=== PATIENT | male | born 1995 | race Caucasian/White ===

== ENCOUNTER 2016-07-19 21:00 | Emergency (ER) ==
--- NOTE | 2016-07-19 23:10 | EDDOCDS ---
Nurse's Notes [facility] Name: Mauricio Perez Age: 21 yrs Sex: Male : 1995 Arrival Date: 07/19/2016 Time: 21:00 Bed [facility] Private MD: Other - Complete Info On Cds Diagnosis: Adjustment disorder with depressed mood Presentation: 07/19 21:07 Red Flag criteria, patient assessed and taken directly to a bed. ck1 21:07 Presenting complaint: Patient states: PER PT HE HAS HAD SOME "PERSONAL ISSUES" LATELY tm5 THAT HAVE INCREASED, WHEN ASKED PT IF HE IS SUICIDAL HE STATES "I'D RATHER NOT SAY" DENIES HOMICIDAL IDEATIONS, PT HAS FLAT AFFECT AT THIS TIME, PT ARRIVES WITH [facility] FROM [place]. Mental Health Triage Level: Level 1- Pt displays no suicidal or homicidal ideations and does not appear to be a danger to self or others. Adult Sepsis Screening: The patient does not have new or worsening altered mentation. Patient's respiratory rate is less than 22. Systolic blood pressure is greater than 100. Patient has a qSOFA score of 0- Negative Sepsis Screen. Mental Health Triage Level: Level 1- Pt displays no suicidal or homicidal ideations and does not appear to be a danger to self or others. Suicide/Homicide risk assessment- the patient denies having any suicidal and/or homicidal ideations and does not present with any other emotional, behavioral or mental health complaints. Status: The patient is an active duty financial services representative. Transition of care: patient was not received from another setting of care. 21:07 Acuity: CLAUDIO Level 3 tm5 21:07 Method Of Arrival: Walkin/Carried/Asstd tm5 Triage Assessment: 21:12 General: Appears in no apparent distress, Behavior is appropriate for age, cooperative. tm5 Pain: Denies pain. Pt Declines HIV testing. Neurological: Level of Consciousness is awake, alert, Oriented to person, place, time. Respiratory: Airway is patent Respiratory effort is even, unlabored, Respiratory pattern is regular, symmetrical. Derm: Skin is pink, warm & dry. normal. Historical: - Allergies: no known allergies; - Home Meds: 1. none - PMHx: none; - PSHx: none; - Social history: Smoking status: Patient states was never smoker of tobacco. No barriers to communication noted, The patient speaks fluent Spanish. - Family history: Not pertinent. - : The pt / caregiver states he / she is not on anticoagulants. Home medication list is obtained from the patient. - Exposure Risk Screening:: None identified. Screenin:13 Screening information is obtained from the patient. Fall risk: No risks identified. tm5 Assistance ADL's: requires no assistance with activities of daily living. Abuse/DV Screen: The patient / caregiver reports he/she is: not in a situation that causes fear, pain or injury. Nutritional screening: No deficits noted. Advance Directives: Currently, there is no health care proxy. There is no active DNR order. home support is adequate. Assessment: 21:19 General: Appears in no apparent distress, comfortable, Behavior is appropriate for age, slm cooperative. General: chain of command in room . Respiratory: Airway is patent Respiratory effort is even, unlabored. 21:52 General: Appears in no apparent distress, comfortable, Behavior is appropriate for age, slm cooperative. General: pt sitting on stretcher chain of command in room security observing . Neurological: Level of Consciousness is awake, alert, obeys commands. Respiratory: Airway is patent Respiratory effort is even, unlabored. 23:08 Reassessment: Patient appears in no apparent distress at this time. [facility] Mental Health Eval: 22:19 Mental health consult is initiated at 22:00. Status: The patient is an active ml4 duty financial services representative. [facility] Behavioral Health: The patient is not an established patient of [facility] Behavioral Health. Referral Information: Evaluation referral is generated by YASMIN(Sgt Cardenas) . The patient was referred for evaluation because pt became intoxicated and bellig[place] [employer]. He allegedly made some vague suicidal threats to 17 year old girlfriend.. Subjective: The patients chief complaint is pt states, "I just had too much to drink and the alcohol got the best of me." Pt reports having a difficult time coping with the loss of his best friend who killed himself(MVA) August,. Admits over the past few days he's been struggling with his and states, "I just miss him so much and I shouldn't of texted my girlfriend while I was drunk, I'm not suicidal. Admits feeling down due to not being able to prevent his friend from suicide and feels sense of guilt. Pt states, "I just still can't believe he killed himself and I should've known he was depressed." He reports being best friends since elementary school and states, "I miss that velazquez between two best friends." Other stressors include past trauma and events that have occurred. While pt was away at [employer](Jan, 2015) he found out his girlfriend was "sleeping" with his Stepfather, which resulted in his Step-father committing suicide(gunshot) on" [employer] Family Day." Sates his step-father's is not a specific trigger of his sadness, however adds to his distress. Pt does not seek tx with [facility] and feels he may benefit from therapy. Pt adamantly denies denies SI and HI, able to CFS. Admits his sadness was exacerbated by his alcohol consumption. . Delusions are denied. Patient's mood is appropriate. Hallucinations are denied. Mental Health history: no relevant mental health problems or treatments. Mental Health Admissions: None. Current Outpatient Mental Health Services: None. Current living environment is The patient currently lives in a [facility]. The patient is single. Patient presents to Emergency Department with the following symptoms within the past 2 weeks: alcohol abuse, anger, anxiety, depressed mood, feelings of helplessness/hopelessness, vague SI while intoxicated, but denies thoughts currently.. Substance abuse: Patient uses of liquor. Mental status exam: Patients appearance is appropriate, Patient's behavior is cooperative, Speech is mumbled. Affect is appropriate. Mood is anxious. Hallucinations are denied. Appetite is characterized by binges. Memory is good. Energy level is normal. Content of thought is normal. Thought process is intact. Cognitive level is oriented to person, place, time and situation Patient's insight is fair. Judgement is fair. Rapport with interviewer is good. Suicidal Ideation is denied. Homicidal ideation is denied. Disposition: Medically cleared for disposition by Cassidy SILVEIRA Psychiatric Consult is deferred per ED physician, JORDANA Hernadez . [facility] Admission Criteria: Not Applicable. [place] because the patient does not display any suicidal or homicidal ideations and does not pose a risk to self or others. DSM-V Differential Diagnosis: Adjustment Disorder (F43.2) unspecified (F43.20). Insurance Pre-Certification: Not Required. Narrative: Pt is able to be discharged to [facility]. He continues to deny SI and HI, able to CFS. Referrals for outpt services was given at bedside and directed to follow up with [facility] during walk-in hrs. [facility] reports pt will have 24 hr supervision until he is able to be seen at [facility]. Vital Signs: 21:02 BP 131 / 65; Pulse 81; Resp 18 S; Temp 97.7(O); Pulse Ox 96% on R/A; Weight 63.5 kg gr2 (R); Height 5 ft. 8 in. (172.72 cm) (R); Pain 2/10; 22:56 BP 128 / 73; Pulse 65; Resp 16; Temp 97.6; Pulse Ox 99% ; Pain 0/10; mas 21:02 Body Mass Index 21.29 (63.50 kg, 172.72 cm) gr2 Vitals: 21:02 Log In Time: July 19, 2016 at 21:02. RN notified that patient meets Red Flag gr2 criteria. ED Course: 21:01 Patient visited by Sy Santamaria. gr2 21:01 Patient moved to Waiting gr2 21:02 Other - Complete Info On Cds is Private Physician. gr2 21:04 Patient visited by Sy Santamaria. gr2 21:04 Patient moved to [facility] gr2 21:06 Patient moved to Waiting ck1 21:12 Triage Initiated tm5 21:14 Patient moved to [facility] tm5 21:16 Heather Olivares LPN is Primary Nurse. slm 21:19 The patient / caregiver is instructed regarding the plan of care and ED course. Patient slm has correct armband on for positive identification. Bed in low position. Call light in reach. Side rails up X 1. Security observing. 21:19 No IV's were initiated during this patient's visit. No procedures done that require slm assistance. 21:20 Patient visited by Heather Olivares LPN. slm 21:29 Pt greeted and oriented to ED. Patient advised of names of staff involved in care, [facility] location of call [place], wait times and NPO status. Accompanied by escort, Patient has correct armband on for positive identification. Placed in psych safe attire. Bed in low position. Call light in reach. Side rails up X 1. Security observing. Property removed, inventory done, secured in belongings bag- Placed in locker 1. Door closed. Noise minimized. Moved to private room. Verbal reassurance given. Warm blanket given. Pillow given. Psych Safety Check: Location: Psych Room. Visual Assessment: cooperative \\T\\ this time. 21:30 Patient visited by Joe Gonsales. mas 21:45 Patient visited by Joe Gonsales. mas 21:53 Patient visited by Heather Olivares LPN. slm 22:00 Patient visited by Joe Gonsales. mas 22:15 Patient visited by Joe Gonsales. mas 22:23 [facility] F[facility] le 22:24 Patient visited by Cassidy Rodriguez FNP. le 22:30 Patient visited by Joe Gonsales. mas 22:45 Patient visited by Joe Gonsales. mas 22:51 Herlinda El [facility] is Referral Physician. le 23:01 Patient visited by Joe Gonsales. mas 23:01 E Legal paperwork was scanned into [employer] and attached to record. cl 23:09 Patient visited by Heather Olivares LPN. slm Attachments: 23:01 E Legal paperwork cl Order Results: There are currently no results for this order. Outcome: 22:52 Discharge ordered by Provider. le 23:08 Discharge Assessment: Patient awake, alert and oriented x 3. No cognitive and/or slm functional deficits noted. Patient verbalized understanding of disposition instructions. patient administered narcotics - no. The following High Risk Discharge criteria are identified: None. Discharged to home ambulatory, with chain of command. Condition: good. Discharge instructions given to patient, Instructed on discharge instructions, follow up and referral plans. Demonstrated understanding of instructions, Pt was receptive of discharge instructions/ teaching. No special radiology studies were completed. 23:10 Patient left the ED. slm Signatures: Modesto Salgado, PSA PSA cl Elmira Black,RN RN ck1 Dolly Ovalle, PSA PSA ml4 Cassiyd Rodriguez FNP ROUTE PROCESS ADMINISTRATOR le Joe Gonsales [place] gr2 Heather Olivares,LOOP PULLER LOOP PULLER slm Alana Nunez,RN RN tm5 MTDD
--- NOTE | 2016-07-19 23:10 | EDDOCDS ---
Physician Documentation [facility] Name: Mauricio Perez Age: 21 yrs Sex: Male : 1995 Arrival Date: 07/19/2016 Time: 21:00 Bed [facility] Private MD: Other - Complete Info On Cds Disposition: 07/19/16 22:52 Discharged to Home/Self Care. Impression: Adjustment disorder with depressed mood. - Condition is Stable. - Discharge Instructions: Depression, Adult. - Medication Reconciliation, Local Pharmacy Hours form. - Follow up: Herlinda El, [facility]; When: Call to arrange an appointment; Reason: Recheck today's complaints, Continuance of care. - Problem is an acute exacerbation. - Symptoms have improved. - Notes: Return to the ED for any further concerns Historical: - Allergies: no known allergies; - Home Meds: 1. none - PMHx: none; - PSHx: none; - Social history: Smoking status: Patient states was never smoker of tobacco. No barriers to communication noted, The patient speaks fluent [place]izean. - Family history: Not pertinent. - : The pt / caregiver states he / she is not on anticoagulants. Home medication list is obtained from the patient. - Exposure Risk Screening:: None identified. Vital Signs: 07/19 21:02 BP 131 / 65; Pulse 81; Resp 18 S; Temp 97.7(O); Pulse Ox 96% on R/A; Weight 63.5 kg / gr2 139.99 lbs (R); Height 5 ft. 8 in. (172.72 cm) (R); Pain 2/10; 22:56 BP 128 / 73; Pulse 65; Resp 16; Temp 97.6; Pulse Ox 99% ; Pain 0/10; mas 21:02 Body Mass Index 21.29 (63.50 kg, 172.72 cm) gr2 MDM: 23:01 [facility] Legal paperwork was scanned into [employer] and attached to record. cl Signatures: Modesto Salgado, AC PSA cl Cassidy Rodriguez, NETWORK CABLER NETWORK CABLER Heather Urias,INSTRUCTIONAL MATERIAL DIRECTOR INSTRUCTIONAL MATERIAL DIRECTOR slm Alana Nunez,RN RN tm5 MTDD
--- NOTE | 2016-07-22 00:10 | EDDOCDS ---
Physician Documentation [facility] Name: Mauricio Perez Age: 21 yrs Sex: Male : 1995 Arrival Date: 07/19/2016 Time: 21:00 Bed [facility] Private MD: Other - Complete Info On Cds Disposition: 07/19/16 22:52 Discharged to Home/Self Care. Impression: Adjustment disorder with depressed mood. - Condition is Stable. - Discharge Instructions: Depression, Adult. - Medication Reconciliation, Local Pharmacy Hours form. - Follow up: Herlinda El, [facility]; When: Call to arrange an appointment; Reason: Recheck today's complaints, Continuance of care. - Problem is an acute exacerbation. - Symptoms have improved. - Notes: Return to the ED for any further concerns Historical: - Allergies: no known allergies; - Home Meds: 1. none - PMHx: none; - PSHx: none; - Social history: Smoking status: Patient states was never smoker of tobacco. No barriers to communication noted, The patient speaks fluent [place]. - Family history: Not pertinent. - : The pt / caregiver states he / she is not on anticoagulants. Home medication list is obtained from the patient. - Exposure Risk Screening:: None identified. Vital Signs: 07/19 21:02 BP 131 / 65; Pulse 81; Resp 18 S; Temp 97.7(O); Pulse Ox 96% on R/A; Weight 63.5 kg / gr2 139.99 lbs (R); Height 5 ft. 8 in. (172.72 cm) (R); Pain 2/10; 22:56 BP 128 / 73; Pulse 65; Resp 16; Temp 97.6; Pulse Ox 99% ; Pain 0/10; mas 21:02 Body Mass Index 21.29 (63.50 kg, 172.72 cm) gr2 MDM: 23:01 [facility] Legal paperwork was scanned into [employer] and attached to record. cl 07/20 12:20 T-Sheet-- Draft Copy was scanned into [employer] and attached to record. gb Signatures: Modesto Salgado, AC PSA cl Louise Cerda, Reg Reg gb Cassidy Rodriguez, DIE SIZER DIE SIZER Heather Urias,SHIMA SCRUBBER SYSTEM ATTENDANT Alana Mckeon,RN RN tm5 The chart was reviewed and I authenticate all verbal orders and agree with the evaluation and treatment provided.Attachments: 07/20 12:20 T-Sheet-- Draft Copy gb Chart Complete MTDD
--- NOTE | 2016-07-22 00:10 | EDDOCDS ---
Nurse's Notes [facility] Name: Mauricio Perez Age: 21 yrs Sex: Male : 1995 Arrival Date: 07/19/2016 Time: 21:00 Bed [facility] Private MD: Other - Complete Info On Cds Diagnosis: Adjustment disorder with depressed mood Presentation: 07/19 21:07 Red Flag criteria, patient assessed and taken directly to a bed. ck1 21:07 Presenting complaint: Patient states: PER PT HE HAS HAD SOME "PERSONAL ISSUES" LATELY tm5 THAT HAVE INCREASED, WHEN ASKED PT IF HE IS SUICIDAL HE STATES "I'D RATHER NOT SAY" DENIES HOMICIDAL IDEATIONS, PT HAS FLAT AFFECT AT THIS TIME, PT ARRIVES WITH [facility] [place]. Mental Health Triage Level: Level 1- Pt displays no suicidal or homicidal ideations and does not appear to be a danger to self or others. Adult Sepsis Screening: The patient does not have new or worsening altered mentation. Patient's respiratory rate is less than 22. Systolic blood pressure is greater than 100. Patient has a qSOFA score of 0- Negative Sepsis Screen. Mental Health Triage Level: Level 1- Pt displays no suicidal or homicidal ideations and does not appear to be a danger to self or others. Suicide/Homicide risk assessment- the patient denies having any suicidal and/or homicidal ideations and does not present with any other emotional, behavioral or mental health complaints. 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 Transition of care: patient was not received from another setting of care. 21:07 Acuity: CLAUDIO Level 3 tm5 21:07 Method Of Arrival: Walkin/Carried/Asstd tm5 Triage Assessment: 21:12 General: Appears in no apparent distress, Behavior is appropriate for age, cooperative. tm5 Pain: Denies pain. Pt Declines HIV testing. Neurological: Level of Consciousness is awake, alert, Oriented to person, place, time. Respiratory: Airway is patent Respiratory effort is even, unlabored, Respiratory pattern is regular, symmetrical. Derm: Skin is pink, warm & dry. normal. Historical: - Allergies: no known allergies; - Home Meds: 1. none - PMHx: none; - PSHx: none; - Social history: Smoking status: Patient states was never smoker of tobacco. No barriers to communication noted, The patient speaks fluent Kiswahili. - Family history: Not pertinent. - : The pt / caregiver states he / she is not on anticoagulants. Home medication list is obtained from the patient. - Exposure Risk Screening:: None identified. Screenin:13 Screening information is obtained from the patient. Fall risk: No risks identified. tm5 Assistance ADL's: requires no assistance with activities of daily living. Abuse/DV Screen: The patient / caregiver reports he/she is: not in a situation that causes fear, pain or injury. Nutritional screening: No deficits noted. Advance Directives: Currently, there is no health care proxy. There is no active DNR order. home support is adequate. Assessment: 21:19 General: Appears in no apparent distress, comfortable, Behavior is appropriate for age, slm cooperative. General: chain of command in room . Respiratory: Airway is patent Respiratory effort is even, unlabored. 21:52 General: Appears in no apparent distress, comfortable, Behavior is appropriate for age, slm cooperative. General: pt sitting on stretcher chain of command in room security observing . Neurological: Level of Consciousness is awake, alert, obeys commands. Respiratory: Airway is patent Respiratory effort is even, unlabored. 23:08 Reassessment: Patient appears in no apparent distress at this time. [facility] Mental Health Eval: 22:19 Mental health consult is initiated at 22:00. 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 [facility] Behavioral Health: The patient is not an established patient of [facility] Behavioral Health. Referral Information: Evaluation referral is generated by YASMIN(Sgt Cardenas) . The patient was referred for evaluation because pt became intoxicated and bellig[place] [employer]. He allegedly made some vague suicidal threats to 17 year old girlfriend.. Subjective: The patients chief complaint is pt states, "I just had too much to drink and the alcohol got the best of me." Pt reports having a difficult time coping with the loss of his best friend who killed himself(MVA) August,. Admits over the past few days he's been struggling with his and states, "I just miss him so much and I shouldn't of texted my girlfriend while I was drunk, I'm not suicidal. Admits feeling down due to not being able to prevent his friend from suicide and feels sense of guilt. Pt states, "I just still can't believe he killed himself and I should've known he was depressed." He reports being best friends since elementary school and states, "I miss that velazquez between two best friends." Other stressors include past trauma and events that have occurred. While pt was away at [employer](Jan, 2015) he found out his girlfriend was "sleeping" with his Stepfather, which resulted in his Step-father committing suicide(gunshot) on" [employer] Family Day." Sates his step-father's is not a specific trigger of his sadness, however adds to his distress. Pt does not seek tx with [facility] and feels he may benefit from therapy. Pt adamantly denies denies SI and HI, able to CFS. Admits his sadness was exacerbated by his alcohol consumption. . Delusions are denied. Patient's mood is appropriate. Hallucinations are denied. Mental Health history: no relevant mental health problems or treatments. Mental Health Admissions: None. Current Outpatient Mental Health Services: None. Current living environment is The patient currently lives in a [employer] banner. The patient is single. Patient presents to Emergency Department with the following symptoms within the past 2 weeks: alcohol abuse, anger, anxiety, depressed mood, feelings of helplessness/hopelessness, vague SI while intoxicated, but denies thoughts currently.. Substance abuse: Patient uses of liquor. Mental status exam: Patients appearance is appropriate, Patient's behavior is cooperative, Speech is mumbled. Affect is appropriate. Mood is anxious. Hallucinations are denied. Appetite is characterized by binges. Memory is good. Energy level is normal. Content of thought is normal. Thought process is intact. Cognitive level is oriented to person, place, time and situation Patient's insight is fair. Judgement is fair. Rapport with interviewer is good. Suicidal Ideation is denied. Homicidal ideation is denied. Disposition: Medically cleared for disposition by Cassidy SILVEIRA Psychiatric Consult is deferred per ED physician, JORDANA Hernadez . [facility] Admission Criteria: Not Applicable. [place] because the patient does not display any suicidal or homicidal ideations and does not pose a risk to self or others. DSM-V Differential Diagnosis: Adjustment Disorder (F43.2) unspecified (F43.20). Insurance Pre-Certification: Not Required. Narrative: Pt is able to be discharged to [facility]. He continues to deny SI and HI, able to CFS. Referrals for outpt services was given at bedside and directed to follow up with [facility] during walk-in hrs. [facility] reports pt will have 24 hr supervision until he is able to be seen at [facility]. Vital Signs: 21:02 BP 131 / 65; Pulse 81; Resp 18 S; Temp 97.7(O); Pulse Ox 96% on R/A; Weight 63.5 kg gr2 (R); Height 5 ft. 8 in. (172.72 cm) (R); Pain 2/10; 22:56 BP 128 / 73; Pulse 65; Resp 16; Temp 97.6; Pulse Ox 99% ; Pain 0/10; mas 21:02 Body Mass Index 21.29 (63.50 kg, 172.72 cm) gr2 Vitals: 21:02 Log In Time: July 19, 2016 at 21:02. RN notified that patient meets Red Flag gr2 criteria. ED Course: 21:01 Patient visited by Sy Santamaria. gr2 21:01 Patient moved to Waiting gr2 21:02 Other - Complete Info On Cds is Private Physician. gr2 21:04 Patient visited by Sy Santamaria. gr2 21:04 Patient moved to [facility] gr2 21:06 Patient moved to Waiting ck1 21:12 Triage Initiated tm5 21:14 Patient moved to [facility] tm5 21:16 Heather Olivares LPN is Primary Nurse. slm 21:19 The patient / caregiver is instructed regarding the plan of care and ED course. Patient slm has correct armband on for positive identification. Bed in low position. Call light in reach. Side rails up X 1. Security observing. 21:19 No IV's were initiated during this patient's visit. No procedures done that require slm assistance. 21:20 Patient visited by Heather Olivares LPN. slm 21:29 Pt greeted and oriented to ED. Patient advised of names of staff involved in care, [facility] location of call [place], wait times and NPO status. Accompanied by escort, Patient has correct armband on for positive identification. Placed in psych safe attire. Bed in low position. Call light in reach. Side rails up X 1. Security observing. Property removed, inventory done, secured in belongings bag- Placed in locker 1. Door closed. Noise minimized. Moved to private room. Verbal reassurance given. Warm blanket given. Pillow given. Psych Safety Check: Location: Psych Room. Visual Assessment: cooperative \\T\\ this time. 21:30 Patient visited by Joe Gonsales. mas 21:45 Patient visited by Joe Gonsales. mas 21:53 Patient visited by Heather Olivares LPN. slm 22:00 Patient visited by Joe Gonsales. mas 22:15 Patient visited by Joe Gonsales. mas 22:23 [facility] le 22:24 Patient visited by Cassidy Rodriguez FNP. le 22:30 Patient visited by Joe Gonsales. mas 22:45 Patient visited by Joe Gonsales. mas 22:51 Herlinda El [facility] is Referral Physician. le 23:01 Patient visited by Joe Gonsales. mas 23:01 E Legal paperwork was scanned into [employer] and attached to record. cl 23:09 Patient visited by Heather Olivares LPN. slm 07/20 12:20 T-Sheet-- Draft Copy was scanned into [employer] and attached to record. gb Attachments: 07/19 23:01 E Legal paperwork cl Order Results: There are currently no results for this order. Outcome: 07/19 22:52 Discharge ordered by Provider. le 23:08 Discharge Assessment: Patient awake, alert and oriented x 3. No cognitive and/or slm functional deficits noted. Patient verbalized understanding of disposition instructions. patient administered narcotics - no. The following High Risk Discharge criteria are identified: None. Discharged to home ambulatory, with chain of command. Condition: good. Discharge instructions given to patient, Instructed on discharge instructions, follow up and referral plans. Demonstrated understanding of instructions, Pt was receptive of discharge instructions/ teaching. No special radiology studies were completed. 23:10 Patient left the ED. m Signatures: Modesto Salgado, PSA PSA cl Louise Cerda, Reg Reg gb Elmira Black,RN RN ck1 Dolly Ovalle, PSA PSA ml4 Cassidy Rodriguez, LARGE ANIMAL VETERINARIAN LARGE ANIMAL VETERINARIAN Joe Nunez Gainslee gr2 Heather Olivares,GLORY HOLE TENDER GLORY HOLE TENDER slm Alana Nunez,RN RN tm5 Chart Complete MTDD
--- NOTE | 2016-07-22 00:10 | EDDOCDS ---
Physician Documentation [facility] Name: Mauricio Perez Age: 21 yrs Sex: Male : 1995 Arrival Date: 07/19/2016 Time: 21:00 Bed [facility] Private MD: Other - Complete Info On Cds Disposition: 07/19/16 22:52 Discharged to Home/Self Care. Impression: Adjustment disorder with depressed mood. - Condition is Stable. - Discharge Instructions: Depression, Adult. - Medication Reconciliation, Local Pharmacy Hours form. - Follow up: Herlinda El, [facility]; When: Call to arrange an appointment; Reason: Recheck today's complaints, Continuance of care. - Problem is an acute exacerbation. - Symptoms have improved. - Notes: Return to the ED for any further concerns Historical: - Allergies: no known allergies; - Home Meds: 1. none - PMHx: none; - PSHx: none; - Social history: Smoking status: Patient states was never smoker of tobacco. No barriers to communication noted, The patient speaks fluent Ukrainian. - Family history: Not pertinent. - : The pt / caregiver states he / she is not on anticoagulants. Home medication list is obtained from the patient. - Exposure Risk Screening:: None identified. Vital Signs: 07/19 21:02 BP 131 / 65; Pulse 81; Resp 18 S; Temp 97.7(O); Pulse Ox 96% on R/A; Weight 63.5 kg / gr2 139.99 lbs (R); Height 5 ft. 8 in. (172.72 cm) (R); Pain 2/10; 22:56 BP 128 / 73; Pulse 65; Resp 16; Temp 97.6; Pulse Ox 99% ; Pain 0/10; mas 21:02 Body Mass Index 21.29 (63.50 kg, 172.72 cm) gr2 MDM: 23:01 MHE Legal paperwork was scanned into [employer] and attached to record. cl 07/20 12:20 T-Sheet-- Draft Copy was scanned into [employer] and attached to record. gb Signatures: Modesto Salgado, [place] PSA cl Louise Cerda, Reg Reg gb Cassidy Rodriguez, DESIGN SPECIALIST DESIGN SPECIALIST Heather Urias,SHIMA ANODIZE MACHINE OPERATOR Alana Mckeon,RN RN tm5 The chart was reviewed and I authenticate all verbal orders and agree with the evaluation and treatment provided.Attachments: 07/20 12:20 T-Sheet-- Draft Copy gb Chart Complete MTDD
== END 2016-07-19 23:10 | disposition home or self-care (01) ==
LOC: M ED 21:00
DX: F33.1 Major depressive disorder, recurrent, moderate (principal)

== ENCOUNTER 2017-02-02 03:06 | Emergency (ER) | payer OTHER ==
[~2017-02-02] VITALS: Ht 172.7 cm; Wt 63.3 kg
[2017-02-02 03:27] VITALS: BP 102/56
[2017-02-02 04:50] LABS: MEAN CORPUSCULAR HEMOGLOBIN 29.8 pg (27.0-33.0); MEAN CORPUSCULAR HGB CONC 33.8 g/dl (32.0-36.5); MEAN CORPUSCULAR VOLUME 88.3 fl (80.0-96.0); RED CELL DISTRIBUTION WIDTH 12.7 % (11.5-14.5); WHITE BLOOD COUNT 6.6 K/mm3 (4.0-10.0)
[2017-02-02 05:17] LABS: ALBUMIN 4.1 GM/DL (3.2-5.2); ALBUMIN/GLOBULIN RATIO 1.21 (1.00-1.93); ALKALINE PHOSPHATASE 113 U/L (45-117); ALT/SGPT 23 U/L (12-78); ANION GAP 10 MEQ/L (8-16); AST/SGOT 15 U/L (15-37); BILIRUBIN,DIRECT 0.1 MG/DL (0.0-0.2); BILIRUBIN,TOTAL 0.3 MG/DL (0.2-1.0); BLOOD UREA NITROGEN 10 MG/DL (7-18); CALCIUM LEVEL 8.7 MG/DL (8.5-10.1); CARBON DIOXIDE LEVEL 25 MEQ/L (21-32); CHLORIDE LEVEL 108 MEQ/L (98-107); CREATININE FOR GFR 0.85 MG/DL (0.70-1.30); GLOMERULAR FILTRATION RATE > 60.0 (>60); GLUCOSE, FASTING 86 MG/DL (70-105); POTASSIUM SERUM 4.3 MEQ/L (3.5-5.1); SODIUM LEVEL 143 MEQ/L (136-145); TOTAL PROTEIN 7.5 GM/DL (6.4-8.2)
== END 2017-02-02 06:40 | disposition home or self-care (01) ==
LOC: M ED 03:06
DX: F43.0 Acute stress reaction (principal); R45.851 Suicidal ideations; F33.8 Other recurrent depressive disorders; F17.210 Nicotine dependence, cigarettes, uncomplicated
CPT/HCPCS: 36415; 80048; 80076; 84443; 85027; 99284; G0480